=== PATIENT | female | born 1950 | race Caucasian/White ===

== ENCOUNTER 2021-08-16 08:18 | Day surgery (SDC) | payer MEDICARE, OTHER ==
[2021-08-14 12:38] LABS: COVID AG,FIA SOURCE NASOPHARYNGEAL
[2021-08-14 12:40] LABS: BASOPHILS % (AUTO) 0.4 % (0.0-2.0); EOSINOPHILS % (AUTO) 6.3 % (1.0-6.0); HEMATOCRIT 37.7 % (36-46); HEMOGLOBIN 12.6 g/dL (12.0-16.0); LYMPHOCYTES # (AUTO) 1.9 K/uL (1.0-4.8); LYMPHOCYTES % (AUTO) 27.2 % (22.0-44.0); MEAN CORPUSCULAR HEMOGLOBIN 28.3 pg (26.0-34.0); MEAN CORPUSCULAR HGB CONC 33.3 G/dL (31.0-37.0); MEAN CORPUSCULAR VOLUME 85 fL (80-100); MONOCYTES # (AUTO) 0.4 K/uL (0.1-1.0); MONOCYTES % (AUTO) 5.8 % (2.0-9.0); NEUTROPHILS # (AUTO) 4.3 K/uL (1.8-7.7); NEUTROPHILS % (AUTO) 60.3 % (40.0-70.0); PLATELET COUNT (AUTO) 284 K/uL (150-450); RED BLOOD CELL COUNT(AUTO) 4.44 MIL/uL (4.00-5.20); RED CELL DISTRIBUTION WIDTH 14.7 % (11.5-14.5)
[2021-08-14 12:52] LABS: CALCIUM, TOTAL 9.1 mg/dL (8.8-10.5); CREATININE 1.14 mg/dL (0.60-1.30); POTASSIUM 4.8 mmol/L (3.5-5.1)
[2021-08-14 13:07] LABS: PROTHROMBIN TIME 10.8 SEC (9.4-11.6)
[~2021-08-16] VITALS: Ht 160 cm; Wt 100.0 kg
[~2021-08-16 08:18] MED LIST: ASPI-1450 PO; ASPIRIN 325 MG TABLET PO ONE; ATOR40TA28 PO; CARV25TA32 PO; FURO20TA4 PO; ISOS30TA68 PO; LEVO100 PO; METF-960 PO; POTA-9 PO; SACU1TAB7 PO; SODIUM CHLORIDE 0.9% 1,000 ML IV ONE
[2021-08-16] MEDS ORDERED: DIAZEPAM 5 MG TABLET PO ONE (08:30)
[2021-08-16] MEDS ORDERED: DiphenhydrAMINE HCL 50 MG CAPSULE PO ONE (08:30)
[2021-08-16] MEDS ORDERED: SODIUM CHLORIDE 0.9% 1,000 ML ONE (08:48)
[2021-08-16] MEDS ORDERED: DIAZEPAM 5 MG TABLET ONE ×2 (08:48→09:11)
[2021-08-16] MEDS ORDERED: ASPIRIN 325 MG TABLET ONE (08:48)
[2021-08-16] MEDS ORDERED: DiphenhydrAMINE HCL 50 MG CAPSULE ONE (08:48)
[2021-08-16] MEDS ORDERED: HEPARIN SODIUM 1000 UNITS/NS 1,000 ML ONE (08:55)
[2021-08-16] MEDS ORDERED: IOHEXOL 300 MG/ML 100 ML VIAL ONE (08:55)
[2021-08-16] MEDS ORDERED: LIDOCAINE/PF 1% 30 ML VIAL ONE (08:55)
[2021-08-16] MEDS ORDERED: IOHEXOL 300 MG/ML 150 ML VIAL ONE (08:55)
[2021-08-16] MEDS ORDERED: SODIUM BICARBONATE 50 MEQ/50 ML VIAL ONE (08:55)
[2021-08-16] MEDS ORDERED: IOHEXOL 300 MG/ML 50 ML VIAL ONE (08:55)
[2021-08-16 09:17] LABS: GLUCOMETER DEV NAME(LOC) SDS.; GLUCOSE,POINT OF CARE 140 MG/DL (70-110)
[2021-08-16] MEDS ORDERED: HEPARIN SODIUM 1000 UNITS/NS 1,000 ML IARTER ONE (11:15)
[2021-08-16] MEDS ORDERED: IOHEXOL 300 MG/ML 50 ML VIAL IARTER ONE (11:15)
[2021-08-16] MEDS ORDERED: MIDAZOLAM HCL 2 MG/2 ML VIAL IVP ONE ×3 (11:15→14:00)
[2021-08-16] MEDS ORDERED: FentaNYL CITRATE PF 100 MCG/2 ML VIAL IVP ONE ×3 (11:15→14:00)
[2021-08-16] MEDS ORDERED: IOHEXOL 300 MG/ML 150 ML VIAL IARTER ONE (11:15)
[2021-08-16] MEDS ORDERED: SODIUM CHLORIDE 0.9% 500 ML IV ONE ×2 (11:15→15:15)
[2021-08-16] MEDS ORDERED: LIDOCAINE 1% 30 ML/SOD BICARB 8.4% 4 ML SQ ONE (11:15)
[2021-08-16 13:07] VITALS: BP 148/82
[2021-08-16] MEDS ORDERED: VERAPAMIL HCL 2.5 MG/ML 2 ML VIAL ONE (13:19)
[2021-08-16] MEDS ORDERED: NITROGLYCERIN 50 MG/D5% WATER 0 ML ONE (13:20)
[2021-08-16] MEDS ORDERED: MIDAZOLAM HCL 2 MG/2 ML VIAL ONE ×2 (13:21→13:47)
[2021-08-16] MEDS ORDERED: FentaNYL CITRATE PF 100 MCG/2 ML VIAL ONE (13:21)
== END 2021-08-16 18:00 | disposition home or self-care (01) ==
LOC: CATHLAB 08:18
PROVIDERS: ATTEND Internal Medicine Cardiovascular Disease
DX: T82.855A Stenosis of coronary artery stent, initial encounter (principal); E03.9 Hypothyroidism, unspecified; I25.2 Old myocardial infarction; I27.0 Primary pulmonary hypertension; E78.00 Pure hypercholesterolemia, unspecified; G47.33 Obstructive sleep apnea (adult) (pediatric); Z79.899 Other long term (current) drug therapy; Z72.89 Other problems related to lifestyle; Z90.710 Acquired absence of both cervix and uterus; Z88.0 Allergy status to penicillin; Z98.890 Other specified postprocedural states; G47.30 Sleep apnea, unspecified; Z98.84 Bariatric surgery status
CPT/HCPCS: 36415; 80048; 82962; 85025; 85610; 85730; 87426; 93005; 93460; 99152; 99153; C1760; C9803; J1644; J2250; J3010; J3490 ×2; J7030; Q9967 ×3